=== PATIENT | female | born 1940 | race Caucasian/White ===

== ENCOUNTER 2018-11-07 09:30 | Emergency (ER) | payer MEDICARE, OTHER ==
[~2018-11-07] VITALS: Ht 170.2 cm; Wt 65.8 kg
[2018-11-07 09:30] VITALS: BP 199/98
--- NOTE | 2018-11-07 10:53 | NUR ---
ROLY WRAP BANDAGE APPLIED TO LEFT ANKLE
== END 2018-11-07 10:55 | disposition home or self-care (01) ==
LOC: ER 09:38
DX: S93.492A Sprain of other ligament of left ankle, initial encounter (principal); S00.83XA Contusion of other part of head, initial encounter; I10 Essential (primary) hypertension; Z86.73 Personal history of transient ischemic attack (TIA), and cerebral infarction without residual deficits; W18.39XA Other fall on same level, initial encounter; Y93.89 Activity, other specified; Y92.39 Other specified sports and athletic area as the place of occurrence of the external cause; Y99.8 Other external cause status
CPT/HCPCS: 73610-TC

== ENCOUNTER 2022-05-01 17:13 | Emergency (ER) | payer MEDICARE, OTHER ==
[~2022-05-01] VITALS: Ht 170.2 cm; Wt 66.7 kg
--- NOTE | 2022-05-01 17:13 | NUR ---
LEFT SHOULDER/UPPER EXTREMITY PAIN, S/P SLIP/FALL AT 1530. PAIN 8/10 ON PAIN SCALE.
[2022-05-01 17:21] VITALS: BP 177/74
--- NOTE | 2022-05-01 17:41 | NUR ---
HEP LOCK STARTED LABS DRAWN - SENT TO LAB
--- NOTE | 2022-05-01 17:42 | NUR ---
LEFT SHOULDER X RAY ORDERED
[2022-05-01] MEDS ORDERED: KETOROLAC TROMETHAMINE INJ 60 MG/2 ML VIAL IM ONE (19:30)
[2022-05-01] MEDS ORDERED: KETOROLAC TROMETHAMINE INJ 30 MG/ML VIAL ONE (19:52)
[2022-05-01] MEDS ORDERED: IBUP-1953 PO (19:55)
[2022-05-01] MEDS ORDERED: HYDR-3980 PO (19:55)
--- NOTE | 2022-05-01 20:03 | NUR ---
Patient discharged to home in stable condition. Written and verbal after care instructions given. Patient verbalizes understanding of instruction.
== END 2022-05-01 20:04 | disposition home or self-care (01) ==
LOC: ER 17:21
DX: S42.202A Unspecified fracture of upper end of left humerus, initial encounter for closed fracture (principal); Z79.899 Other long term (current) drug therapy; W01.0XXA Fall on same level from slipping, tripping and stumbling without subsequent striking against object, initial encounter; Y93.89 Activity, other specified; Y92.009 Unspecified place in unspecified non-institutional (private) residence as the place of occurrence of the external cause; Y99.9 Unspecified external cause status
CPT/HCPCS: 99284; 96372; 73080; 73030; J1885